=== PATIENT | male | born 1985 | race Caucasian/White ===

== ENCOUNTER 2016-12-02 08:06 | Day surgery (SDC) | payer BC ==
[2016-11-29 14:37] VITALS: BMI 24.4
[~2016-12-02 08:06] MED LIST: DEXAMETHASONE SOD PHOSPHATE 10 MG/ML 1 ML VIAL IV ONE; HYDROmorphone 1 MG/ML 1 ML SYRINGE IVP PRN; LACTATED RINGERS 1,000 ML IV SCH; ONDANSETRON 4 MG/2 ML VIAL IVP ONE; Pre Op ABX Message 1 EACH MISC MISCELLANE ONE
[2016-12-02 08:30] VITALS: RESP 16; TEMP 98.2
[2016-12-02] MEDS ORDERED: LIDOCAINE 1% 20 ML VIAL (10MG/ML) FOR IV START INTRADERMA ONE (08:30)
[2016-12-02] MEDS ORDERED: fentaNYL (PF) 50 MCG/ML 2 ML AMP ONE (08:59)
[2016-12-02] MEDS ORDERED: PROPOFOL 10 MG/ML 20 ML VIAL IV ONE (08:59)
[2016-12-02] MEDS ORDERED: LIDOCAINE 1% INJ 10MG/ML (20 ML MDV) ONE (08:59)
[2016-12-02] MEDS ORDERED: BUPIVACAIN-EPI 0.25%-1:200,000 30 ML VIAL SQ ONE ×2 (09:26→09:55)
--- NOTE | 2016-12-02 10:09 | P.OP ---
Date of Procedure: 12/02/16 Preoperative Diagnosis: Right retroauriclar lipoma Postoperative Diagnosis: Right retroauricular lipoma Procedure(s) Performed: Excision of lipoma of the scalp 3.2 x 2.4 x 1 cm lipoma of the scalp extending deep to the subcutaneous tissue extending to the fascia. and muscle Anesthesia: MAC Surgeon: Corrina Khan Estimated Blood Loss (ml): 5 Pathology: other Condition: stable Disposition: PACU Operative Findings: 3.2 x 2.4 x 1 cm lipoma of the scalp extending deep to the subcutaneous tissue extending to the fascia. and muscle Description of Procedure: After the patient was identified in the preop operating holding area using to the operating room placed in position and given IV sedation. After appropriately clipping the hair he was prepped and draped in the usual sterile surgical fashion. Appropriate timeout was called. The area had already been marked in the preoperative area. Local anesthesia was infiltrated after which incision was made removing an elliptical piece of skin with the help of a 15 blade scalpel. Electrocautery was used to control the bleeding from the skin edges. Sharp dissection was done releasing the dense attachments between the lipoma and the surrounding tissues all the way down to the scalp muscle. It was densely adherent over there and had to be excised using electrocautery. Hemostasis is secured with the help of electrocautery incision was closed with 3 -0 Vicryl and skin was closed with 4-0 nylon. Patient tolerated procedure well he was awoken and taken to recovery in stable condition after appropriate dressing. There were no complications
[2016-12-02 10:58] VITALS: BP 99/60; PULSE 64
== END 2016-12-02 11:17 | disposition home or self-care (01) ==
LOC: OR 08:06
PROVIDERS: ATTEND Surgery
DX: D17.0 Benign lipomatous neoplasm of skin and subcutaneous tissue of head, face and neck (principal)
CPT/HCPCS: 88304; 11424; J1100; J2405; J2001; J3010; J2704; 88305